=== PATIENT | female | born 2000 | race American Indian/Alaskan Native ===

== ENCOUNTER 2021-06-22 13:04 | Outpatient (CLI) | payer OTHER ==
--- NOTE | 2021-06-22 14:26 | Ultrasound Report ---
ULTRASOUND BREAST LEFT LIMITED, 06/22/2021 CLINICAL INFORMATION / INDICATION: PALPABLE AREA AT LEFT AREOLA. TECHNIQUE: Targeted ultrasound evaluation was performed of the area of interest. COMPARISON: None. FINDINGS: Sonographic evaluation of the palpable area in the left breast shows a hypoechoic mass versus fluid c ollection in the dermis at 8:00, adjacent to the nipple. This mass versus fluid collection measures 1 .1 x 0.4 x 1.6 cm. The appearance is most suggestive of intradermal abscess. IMPRESSION: 1.6 cm intradermal hypoechoic mass is present accounting for the palpable area in the lef t breast 8:00 periareolar location. The appearance is most suggestive of intradermal abscess. Recomme nd short-term follow-up left breast ultrasound following treatment with antibiotics, to ensure resolu tion. Follow up recommendation: Short term follow up in 3 months. BI-RADS Category 3: PROBABLY BENIGN. Followup in 3 months. A normal or "negative" report should not preclude biopsy or follow-up of a clinically suspicious find ing. Signer Name: Tiffanie Humphreys MD Signed: 06/22/2021 2:22 PM Workstation Name: [id number]
== END 2021-06-22 13:05 | disposition home or self-care (01) ==
LOC: US 13:04
PROVIDERS: ATTEND Advanced Practice Midwife
DX: N60.02 Solitary cyst of left breast (principal)